=== PATIENT | female | born 1945 | race Caucasian/White ===

== ENCOUNTER → 2018-04-19 08:31 | Outpatient (CLI) | payer MEDICARE, SELFPAY ==
--- NOTE | 2018-04-19 08:35 | MM_ITS ---
MM Dig screening mamm BI w/CAD CAD Screening ORDERING PHYSICIAN : Tima Duong MD PATIENT AGE: 72 years GENDER: Female HISTORY of lumpectomy and radiation for left breast malignancy. Family history sister with breast cancer age 70 COMPARISON: Bilateral mammograms: April 20172015February 2015 right mammogram October 2016.: TECHNIQUE: Standard CC and MLO images were obtained. R2 CAD reviewed. FINDINGS: . Minimal residual fibroglandular elements Lower density breast.. Small left breast lumpectomy due to the RIGHT BREAST:Small density at the deep axillary right breast on MLO is again noted. It it is more evident than 2017, last years exam. On Today's images is similar but very slight slightly more pronounced than 2016. Also note that this density was not evident on 2012, 2011 up to the level of the right mammogram.. This low-density nodular area nearly 10 mm x 5.5 mm with Question slight irregular, possibly slight subtle stellate margins... It may be merely a intramammary lymph node but seems to be very from study to study but in view of the patient's history of contralateral breast cancer, with suggest follow-up spot views and ultrasound to further evaluate this minimal density.. . LEFT BREAST: Smaller left breast due to lumpectomy with no new findings on left. IMPRESSION: 1. Right Breast. Recommend spot views and ultrasound to evaluate subtle density deep axillary right breast particularly in view of patient's higher risk history of contralateral breast cancer We again see a small nearly 1 cm low-density nodule deep x-ray quadrant right breast similar but slightly more evident in 2016.. Relatively low-density but Question subtle stellate irregular margins..... 2. Left Breast unchanged. Follow-up one year on left stable BI-RADS Category: 0 Need Additional Imaging Evaluaiton RECOMMENDED FOLLOW-UP: IMM - IMMEDIATE FOLLOW-UP RECOMMENDED Spot views right breast and right breast ultrasound when convenient for patient (A letter has been sent to the patient regarding results of the study.) In
== END ==
PROVIDERS: Family Provider Family Medicine; PCP Family Medicine; Visit Provider Surgery
DX: Z12.31 Encounter for screening mammogram for malignant neoplasm of breast (principal)
CPT/HCPCS: 77067

== ENCOUNTER → 2018-05-13 13:33 | Outpatient (CLI) | payer MEDICARE, SELFPAY ==
--- NOTE | 2018-05-13 13:35 | US_ITS ---
MM Dig mamm DX unilat RT CAD, US breast RT complete INDICATION: Follow-up abnormal mammogram ORDERING PHYSICIAN: Tima Duong MD PATIENT AGE: 72 years COMPARISON: 04/19/2018, 04/17/2017 TECHNIQUE: Problem-solving views performed of the right breast FINDINGS: The asymmetric density in the deep upper aspect of the right breast does appear to compress out as fibroglandular tissue. No discrete mass evident. Right breast ultrasound: No solid or cystic abnormalities apparent. IMPRESSION: Negative, no evidence of malignancy BI-RADS Category: 2 Benign Finding(s) RECOMMENDED FOLLOW-UP: 1YR - 1 YEAR FOLLOW-UP (A letter has been sent to the patient regarding results of the study.)
== END ==
PROVIDERS: Family Provider Family Medicine; PCP Family Medicine; Visit Provider Surgery
DX: Z85.3 Personal history of malignant neoplasm of breast (principal); R92.8 Other abnormal and inconclusive findings on diagnostic imaging of breast
CPT/HCPCS: 76641; 77065

== ENCOUNTER → 2019-05-16 08:11 | Outpatient (CLI) | payer MEDICARE, SELFPAY ==
--- NOTE | 2019-05-16 08:12 | MM_ITS ---
MM Dig screening mamm BI w/CAD ORDERING PHYSICIAN : Tima Duong MD PATIENT AGE: 73 years GENDER: Female COMPARISON: Bilateral mammogram studies 04/19/2018, April 2017. Right mammogram October 2016 comparison bilateral mammograms also from to February 2013, 2013, 2014, March 2015 &. April 2016. INDICATION: Screenin yr fu / history of breast cancer Left lumpectomy and radiation--left breast breast malignancy Family history. Sister with breast cancer age 70 TECHNIQUE: Standard CC and MLO images were obtained. R2 CAD reviewed. Additional Left Breast images:: MLO nipple profile; & axillary cc view FINDINGS: Moderate breast density bilaterally. Overall stable appearance with no significant new findings. RIGHT BREAST:No new areas significant concern. Minor nodularity deep right breast unchanged since studies dating back to October 2016. Most likely intramammary lymph node. LEFT BREAST: Left breast is smaller from the previous left mastectomy and radiation changes. There is some minimal residual scarring towards upper-outer quadrant but no new areas concern after reviewing all images Area of minimal focal density at the margin image, lateral left breast on breast the cc view observed, but dissipates on other views-most compatible with fibroglandular elements.It is not seen on MLO nor on the axillary cc view thus favor favor is merely overlapping breast tissue. Also note. Similar area seen in 2018 & 17. . IMPRESSION: ...... Moderate breast density Right breast.: Stable no new areas of concern Follow-up in one year. Left breast. Colon No new areas of significant concern Small asymmetric area of density at the deep lateral left breast on one view dissipates on the other views, & seen previous studies. Follow-up in not over one year recommended,. Annual follow-up should be emphasized/encouraged in this higher risk patient. BI-RADS Category: 2 Benign Finding(s) RECOMMENDED FOLLOW-UP: 1YR 1 YEAR FOLLOW-UP (A letter has been sent to the patient regarding results of the study.)
== END ==
PROVIDERS: PCP Family Medicine; Visit Provider Surgery
DX: Z12.31 Encounter for screening mammogram for malignant neoplasm of breast (principal)
CPT/HCPCS: 77067

== ENCOUNTER → 2020-05-18 08:17 | Outpatient (CLI) | payer MEDICARE, SELFPAY ==
--- NOTE | 2020-05-18 08:34 | MM_ITS ---
PROCEDURE: MM DIG SCREENING MAMM BI W/CAD DIGITAL BREAST TOMOSYNTHESIS INCLUDED Patient Age:74Y CLINICAL INDICATION: Routine screening mammogram. 74-year-old. No female hormones; no new complaints. Previous left lumpectomy prior left breast malignancy. Family history: Sister with breast cancer COMPARISON: [facility] DIGITAL MAMM-SCREEN BILATERAL from 11/14/2010 [facility]MDB DIGITAL MAMM-DX BILATERAL from 02/13/2012 [facility] DIGITAL MAMM-SCREEN BILATERAL from 02/14/2013 DMSB DIG MAMM-SCREEN [facility] from 03/01/2014 DMSB DIG MAMM-SCREEN [facility] from 03/05/2015 [facility]MD[facility] DIG MAMM-DX [facility] from 03/14/2015 DMSB DIG MAMM-SCREEN [facility] from 04/15/2016 [id number] DIG MAMM-DX UNI ADD VIEWS-RT from 11/06/2016 [facility] DIG MAMM-SCREEN [place] W/CAD from 04/17/2017 [facility] MM Dig screening mamm BI w/CAD from 04/19/2018 DXRT MM Dig mamm DX unilat RT CAD from 05/13/2018 DIG MAMM-SCREEN MARILYN from 05/16/2019 TECHNIQUE: Standard CC and MLO images were obtained. R2 CAD reviewed. Bilateral digital breast tomosynthesis included. FINDINGS: . [id number] residual fibroglandular elements No new dominant or suspicious mass either breast. No new areas of architectural change. The no suspicious calcifications Right breast: No new areas of significant concern Small stable asymmetric area of density at the medial deep right breast CC view has been present since with no appreciable progression nor change Left breast: Stable Left breast is smaller due to previous lumpectomy. However we see no significant new findings. Slight than optimal imaging towards deep axillary quadrant due to the smaller breast size but overall similar appearance to multiple previous studies IMPRESSION: Stable bilateral mammogram. No new areas of significant concern Previous left lumpectomy again noted Bilateral follow-up 1 year recommended; and should be be emphasized/encouraged in this higher risk patient BI-RAD Category: 2 Benign Finding(s) FOLLOW-UP: 1YR 1 Year Follow-up the the (A letter has been sent to the patient regarding results of the study.) Dictated by: Salas Rose MD 05/21/2020 11:58 Electronically signed by Salas Rose MD in [place] 05/21/2020 11:58
== END ==
PROVIDERS: PCP Family Medicine; Visit Provider Surgery
DX: Z12.31 Encounter for screening mammogram for malignant neoplasm of breast (principal); Z85.3 Personal history of malignant neoplasm of breast
CPT/HCPCS: 77063; 77067

== ENCOUNTER → 2020-08-06 12:13 | Outpatient (CLI) | payer MEDICARE, SELFPAY ==
--- NOTE | 2020-08-06 12:19 | XR_ITS ---
PROCEDURE: XR SHOULDER RT MIN 2V CLINICAL INDICATION: RT SHOULDER ROTATOR CUFF SYNDROME COMPARISON: No exams were available for comparison FINDINGS: There are moderate osteoarthritic changes of the glenohumeral joint with prominent osteophyte along the inferior aspect of the humeral head/neck junction. Osteoarthritis also noted at the AC joint. No fracture or dislocation. No lytic or blastic change. There is mild subacromial stenosis. Other findings:None. 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
== END ==
PROVIDERS: PCP Family Medicine; Visit Provider Family Medicine
DX: M75.101 Unspecified rotator cuff tear or rupture of right shoulder, not specified as traumatic (principal)
CPT/HCPCS: 73030

== ENCOUNTER → 2021-05-20 07:46 | Outpatient (CLI) | payer MEDICARE, SELFPAY ==
--- NOTE | 2021-05-20 07:47 | MM_ITS ---
PROCEDURE: MM DIG SCREENING MAMM BI W/CAD Digital Breast Tomosynthesis Included CLINICAL INDICATION: Screening Screening for breast cancer COMPARISON: MG DXRT MM Dig mamm DX unilat RT CAD from 05/13/2018 MG DIG MAMM-SCREEN MARILYN from 05/16/2019 MG MM DIG SCREENING MAMM BI W/CAD from 05/18/2020 TECHNIQUE: Standard CC and MLO images and 3D Tomosynthesis was obtained. R2 CAD reviewed. FINDINGS: There is average fibroglandular tissue. 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 The this area cannot be imaged then ultrasound may provide further evaluation. An enlarging 4 mm nodules present in the upper outer right breast Left breast shows no obvious mass or suspicious microcalcification. There is slight increased density of the left breast with a left breast being smaller than the right which is been a constant feature dating back to 05/16/2019. IMPRESSION: Enlarging small right breast nodule. Suggest spot compression views and right breast ultrasound for further evaluation. Also suggest right axillary tail and Ryanne views if possible to exam in the right axilla. Otherwise unremarkable screening mammogram BI-RAD Category: 0 Need Additional Imaging Evaluation FOLLOW-UP: IMM Immediate Follow-up Recommended (A letter has been sent to the patient regarding results of the study.) Dictated by: Alfonso Ogden MD 05/21/2021 08:22 Alfonso Ogden MD in [place] 05/21/2021 08:22
== END ==
PROVIDERS: PCP Family Medicine; Visit Provider Surgery
DX: Z12.31 Encounter for screening mammogram for malignant neoplasm of breast (principal)
CPT/HCPCS: 77063; 77067

== ENCOUNTER → 2021-05-22 08:49 | Outpatient (CLI) | payer MEDICARE, SELFPAY ==
--- NOTE | 2021-05-22 08:53 | XR_ITS ---
PROCEDURE: XR SHOULDER RT MIN 2V CLINICAL INDICATION: right shoulder pain COMPARISON: DX XR SHOULDER RT MIN 2V from 08/06/2020 FINDINGS: No fracture or dislocation. No lytic or blastic change. There is normal mineralization. Are severe osteoarthritic changes of the right shoulder with slightly high-riding humeral head and subacromial stenosis similar to the previous exam. IMPRESSION: Severe osteoarthritic changes with subacromial stenosis and slightly high-riding humeral unchanged Dictated by: Alfonso Ogden MD 05/22/2021 09:52 Alfonso Ogden MD in [place] 05/22/2021 09:52
== END ==
PROVIDERS: PCP Family Medicine; Visit Provider Orthopaedic Surgery
DX: G89.29 Other chronic pain (principal); M25.511 Pain in right shoulder
CPT/HCPCS: 73030

== ENCOUNTER → 2021-06-06 13:50 | Outpatient (CLI) | payer MEDICARE, SELFPAY ==
--- NOTE | 2021-06-06 13:50 | US_ITS ---
PROCEDURE: MM DIG MAMM DX UNILAT RT CAD Digital Breast Tomosynthesis Included Right breast ultrasound CLINICAL INDICATION: ABN MAMM Follow-up abnormal mammogram COMPARISON: MG DMSB DIGITAL MAMM-SCREEN BILATERAL from 02/14/2013 MG DIG MAMM-SCREEN MARILYN from 05/16/2019 MG MM DIG SCREENING MAMM BI W/CAD from 05/18/2020 MG MM DIG SCREENING MAMM BI W/CAD from 05/20/2021 US US BREAST RT COMPLETE from 06/06/2021 TECHNIQUE: Problem solving views performed of the right breast along with right breast ultrasound FINDINGS: Spot compression view and rolled CC views as well as a straight mL view confirms the presence of a benign-appearing nodule in the outer aspect of the right breast measuring 3 mm. Today's study shows the nodule similar in size compared to previous studies. The nodule did appears slightly larger on the previous mammogram. The margins were also obscured overlying vessels Right breast ultrasound: 3 mm cyst is present at the 10 o'clock region corresponding to the mammographic abnormality. No suspicious nodules are evident. IMPRESSION: Benign findings. 3 mm benign-appearing cyst in the 10 o'clock region of the right breast corresponds to the mammographic abnormality BI-RAD Category: 2 Benign Finding FOLLOW-UP: 1 YR 1 Year Follow-up (A letter has been sent to the patient regarding results of the study.) Dictated by: Alfonso Ogden MD 06/12/2021 09:44 Alfonso Ogden MD in [place] 06/12/2021 09:44
== END ==
PROVIDERS: PCP Family Medicine; Visit Provider Surgery
DX: Z85.3 Personal history of malignant neoplasm of breast (principal)
CPT/HCPCS: 76641; 77061; 77065; G0279

== ENCOUNTER → 2022-06-09 07:51 | Outpatient (CLI) | payer MEDICARE, SELFPAY ==
--- NOTE | 2022-06-09 07:52 | MM_ITS ---
PROCEDURE INFORMATION: Exam: MG Bilateral Screening 3D Mammography Exam date and time: 06/09/2022 7:58 AM Age: 76 years old Clinical indication: Screening examination; Additional info: Abnormal RT breat. Family history of breast carcinoma. Personal history of left breast carcinoma treated with lumpectomy and radiation. TECHNIQUE: Imaging protocol: Bilateral Screening tomosynthesis and 2D mammography including computer-aided detection (CAD) when performed. COMPARISON: 1. MG MM DIG MAMM DX UNILAT RT CAD 06/06/2021 2:06 PM 2. MG MM DIG SCREENING MAMM BI W/CAD 05/20/2021 8:09 AM 3. MG MM DIG SCREENING MAMM BI W/CAD 05/18/2020 8:39 AM FINDINGS: Limitations: Technically difficult exam secondary to difficulty positioning and limited range of motion. Images are best obtainable. MAMMOGRAPHY: Breast composition: There are scattered areas of fibroglandular density. Mass: No suspicious masses. Architectural distortion: Questionable subtle area of architectural distortion and asymmetry in the right upper inner quadrant, middle depth, best seen on CC frame 36, MLO frame 40. Relatively stable post lumpectomy scarring in the left breast. Calcifications: No suspicious calcifications. Asymmetric density: See above Skin thickening: Diffuse post radiation skin thickening in the left breast. Axillary adenopathy: None. The axillae and posterior breast tissue bilaterally are partially excluded from view. IMPRESSION: 1. Recommend right breast spot compression CC/MLO view , full field true lateral view and ultrasound for further evaluation of a questionable subtle area of architectural distortion and asymmetry in the right upper inner quadrant. 2. No definite mammographic evidence of malignancy in the left breast. ASSESSMENT: BI-RADS Category 0: Incomplete- Need Additional Imaging Evaluation and/or Prior Mammograms for Comparison
== END ==
PROVIDERS: PCP Nurse Practitioner Family; Visit Provider Surgery
DX: Z12.31 Encounter for screening mammogram for malignant neoplasm of breast (principal)
CPT/HCPCS: 77063; 77067

== ENCOUNTER → 2022-07-01 12:55 | Outpatient (CLI) | payer MEDICARE, SELFPAY ==
--- NOTE | 2022-07-01 12:55 | US_ITS ---
PROCEDURE INFORMATION: Exam: US Right Breast, Complete MG Right Diagnostic Breast Tomosynthesis Exam date and time: 07/01/2022 12:52 PM Age: 76 years old Clinical indication: Recall on the basis of screening mammogram 06/09/2022 possible architectural distortion and asymmetry in the right upper inner quadrant. TECHNIQUE: Imaging protocol: Complete ultrasound of all four quadrants of the Right breast and the retroareolar regions, including ultrasound of the axilla when performed. Right Diagnostic tomosynthesis and 2D mammography including computer-aided detection (CAD) when performed. Unilateral or bilateral exam. COMPARISON: 1. MG MM DIG SCREENING MAMM BI W/CAD 06/09/2022 7:58 AM 2. MG MM DIG MAMM DX UNILAT RT CAD 06/06/2021 2:06 PM 3. MG MM DIG SCREENING MAMM BI W/CAD 05/20/2021 8:09 AM 4. MG MM DIG SCREENING MAMM BI W/CAD 05/18/2020 8:39 AM FINDINGS: MAMMOGRAPHY: Diagnostic spot compression in the upper inner quadrant which almost completely effaced asymmetry in the CC projection, similar appearance to 05/20/2021, with no persisting asymmetry or architectural distortion in the MLO and ML projections. No suspicious mass. ULTRASOUND: Right sonography, all 4 quadrants demonstrate at 10 o'clock 7 cm from the nipple, a sonographically unremarkable 0.5 cm intramammary lymph node. No cystic or suspicious solid masses or sonographic non masslike findings are demonstrated, with particular attention to the upper inner quadrant. Sonographically unremarkable right axillary lymph nodes. IMPRESSION: Suggest six-month follow-up right diagnostic mammogram to ensure stability of the almost completely effaced asymmetry, unless otherwise clinically indicated. ASSESSMENT: BI-RADS Category 3: Probably benign
== END ==
PROVIDERS: PCP Nurse Practitioner Family; Visit Provider Surgery
DX: R92.8 Other abnormal and inconclusive findings on diagnostic imaging of breast (principal)
CPT/HCPCS: 76641; 77061; 77065; G0279

== ENCOUNTER → 2023-01-02 12:50 | Outpatient (CLI) | payer MEDICARE, SELFPAY ==
--- NOTE | 2023-01-02 12:51 | MM_ITS ---
PROCEDURE INFORMATION: Exam: US Right Breast, Complete MG Right Diagnostic Breast Tomosynthesis Exam date and time: 01/02/2023 1:41 PM Age: 77 years old Clinical indication: Short-term radiographic followup; Right breast; asymmetry TECHNIQUE: Imaging protocol: Complete ultrasound of all four quadrants of the right breast and the retroareolar regions, including ultrasound of the axilla when performed. Right Diagnostic tomosynthesis and 2D mammography including computer-aided detection (CAD) when performed. Unilateral or bilateral exam. COMPARISON: 1. US BREAST RT COMPLETE 07/01/2022 1:57 PM 2. Mammogram dated 07/01/2022 FINDINGS: MAMMOGRAPHY: The breast tissue is composed of scattered areas of fibroglandular density. There is no stellate mass, architectural distortion or suspicious microcalcifications to suggest malignancy. No suspicious asymmetry is identified. No skin thickening or axillary adenopathy. ULTRASOUND: Sonographic images of the right breast including the retroareolar region, all 4 quadrants and the axilla do not demonstrate any suspicious solid or cystic masses. No architectural distortion or acoustical shadowing. No skin thickening or axillary adenopathy. IMPRESSION: No mammographic or sonographic evidence of malignancy. Annual bilateral mammographic screening is recommended in June 2023 unless otherwise clinically indicated. ASSESSMENT: BI-RADS Category 1: Negative
== END ==
PROVIDERS: PCP Nurse Practitioner Family; Visit Provider Surgery
DX: R92.8 Other abnormal and inconclusive findings on diagnostic imaging of breast (principal)
CPT/HCPCS: 76641; 77061; 77065; G0279

== ENCOUNTER → 2023-07-20 13:48 | Outpatient (CLI) | payer MEDICARE, SELFPAY ==
--- NOTE | 2023-07-20 13:49 | MM_ITS ---
PROCEDURE INFORMATION: Exam: MG Bilateral Screening 3D Mammography Exam date and time: 07/20/2023 1:44 PM Age: 77 years old Clinical indication: Screening mammogram TECHNIQUE: Imaging protocol: Bilateral Screening tomosynthesis and 2D mammography including computer-aided detection (CAD) when performed.Limited assessment due to difficulty positioning the patient, frozen right shoulder. COMPARISON: 1. MG MM DIG MAMM DX UNILAT RT CAD 01/02/2023 12:49 PM 2. MG MM DIG MAMM DX UNILAT RT CAD 07/01/2022 12:52 PM 3. MG MM DIG SCREENING MAMM BI W/CAD 06/09/2022 7:58 AM 4. MG MM DIG MAMM DX UNILAT RT CAD 06/06/2021 2:06 PM FINDINGS: MAMMOGRAPHY: Breast composition: There are scattered areas of fibroglandular density. Mass: None. Architectural distortion: No new or suspicious architectural distortion. Calcifications: No new or suspicious calcifications are present Asymmetric density: No new or suspicious asymmetric density is present Skin thickening: None. Axillary adenopathy: None. Other findings: Stable postoperative findings are present within the left breast. IMPRESSION: No mammographic evidence of malignancy. Recommend annual screening mammography unless otherwise clinically indicated. ASSESSMENT: BI-RADS category 2: Benign
== END ==
PROVIDERS: PCP Nurse Practitioner Family; Visit Provider Surgery
DX: R92.8 Other abnormal and inconclusive findings on diagnostic imaging of breast (principal)
CPT/HCPCS: 77062; 77066; G0279

== ENCOUNTER → 2023-08-04 15:25 | Outpatient (CLI) | payer MEDICARE, SELFPAY ==
--- NOTE | 2023-08-04 15:25 | US_ITS ---
PROCEDURE INFORMATION: Exam: US Right Breast, Complete Exam date and time: 08/04/2023 3:29 PM Age: 77 years old Clinical indication: Right breast palpable lump. TECHNIQUE: Imaging protocol: Complete ultrasound of all four quadrants of the right breast and the retroareolar regions, including ultrasound of the axilla when performed. COMPARISON: 07/20/2023, 01/02/2023, 07/01/2024 FINDINGS: Breast: Ultrasound assessment of all 4 quadrants and retroareolar right breast as well as right axilla was performed Irregular hypoechoic shadowing vascular mass along the 1 o'clock right breast 4 cm from the nipple measures 0.5 x 0.3 x 0.3 cm. This has sonographically suspicious features. 0.2 x 0.2 x 0.2 cm hypoechoic mass along the 10 o'clock axis 6 cm from the nipple is slightly smaller when compared with 01/02/2023 IMPRESSION: Ultrasound-guided biopsy is recommended to definitively characterize a right 1 o'clock morphologically suspicious shadowing 0.5 cm vascular mass ASSESSMENT: BI-RADS category 4: Suspicious
== END ==
PROVIDERS: PCP Nurse Practitioner Family; Visit Provider Surgery
DX: R92.8 Other abnormal and inconclusive findings on diagnostic imaging of breast (principal)
CPT/HCPCS: 76641

== ENCOUNTER → 2023-08-07 13:48 | Outpatient (CLI) | payer MEDICARE, SELFPAY ==
[2023-08-07 12:53] LABS: Alanine Aminotransferase 32 U/L (12-78); Albumin Level 4.7 g/dl (3.5-5.0); Albumin/Globulin Ratio 1.3 (1.1-1.8); Alkaline Phosphatase 86 U/L (38-126); Anion Gap 15.3 mEq/L (5-15); Aspartate Amino Transferase 41 U/L (14-36); Bilirubin,Total 0.5 mg/dl (0.2-1.3); Blood Urea Nitrogen 21 mg/dl (7-17); Calcium 9.8 mg/dl (8.4-10.2); Carbon Dioxide 26 mmol/L (22.0-30.0); Chloride 102 mmol/L (98-107); Chol/HDL Ratio 3.3 (1-3.5); Cholesterol 174 mg/dl (140-200); Estimated Glomerular Filt Rate 60 ml/min (>60); GFR (African American) 73 ML/MIN (>60); Globulin 3.5 g/dL (1.3-3.2); Glucose 98 mg/dl (74-100); HDL Cholesterol 52 mg/dl (40-60); Potassium 4.3 mmoL/L (3.5-5.1); Sodium 139 mmol/L (136-145); Total Protein,Serum 8.2 g/dl (6.3-8.2); Triglycerides 102 mg/dl (30-150); VLDL Cholesterol 20 mg/dL (0-40)
[2023-08-07 13:04] LABS: Direct LDL Cholesterol 91.86 mg/dL (100-129)
[2023-08-07 13:23] LABS: Thyroid Stimulating Hormone 5.58 uIU/mL (0.465-4.68)
== END ==
PROVIDERS: PCP Nurse Practitioner Family; Visit Provider Nurse Practitioner Family
DX: E03.9 Hypothyroidism, unspecified (principal); E78.5 Hyperlipidemia, unspecified; I10 Essential (primary) hypertension
CPT/HCPCS: 80053; 80061; 84443

== ENCOUNTER → 2023-08-24 07:17 | Outpatient (CLI) | payer MEDICARE, SELFPAY ==
--- NOTE | 2023-08-24 07:17 | US_ITS ---
FINAL REPORT CLINICAL HISTORY: CORE 100 RT BREAST -- DR. CYNTHIA SHAH-- FINDINGS: ULTRASOUND-GUIDED RIGHT BREAST CORE BIOPSY TECHNIQUE: Limited images were obtained to localize region of interest. The abnormality was a 5 mm lesion at 1:00 associated with shadowing. The right breast was prepped in a routine sterile fashion and locally anesthetized with 1% lidocaine. Standard written informed consent was obtained. An 11-gauge vacuum assisted hand-held device was utilized. The needle was positioned posterior to the lesion. Multiple vacuum assisted core samples were obtained. The lesion was noted to be significantly smaller following biopsy. A biopsy marker clip was deployed in satisfactory position. Postbiopsy mammogram showed postbiopsy changes with clip in satisfactory position. Procedure was well tolerated . CONCLUSION: 1. Technically successful ultrasound guided vacuum assisted core biopsy of right breast lesion as above. 2. Biopsy marker clip deployed Histopathology results reveal invasive ductal carcinoma.. Pathology is concordant with imaging findings. Medical and surgical oncological follow-up recommended Authenticated and ERN
--- NOTE | 2023-08-24 07:35 | MM_ITS ---
FINAL REPORT CLINICAL HISTORY: . CLIP PLACEMENT, breast biopsy FINDINGS: MAMMOGRAM RIGHT TECHNIQUE: Standard digital 2-D views COMPARISON: 07-20-23 DENSITY: There are scattered areas of fibroglandular density FINDINGS: Post biopsy marker clip is noted to be in satisfactory position. Postbiopsy changes are noted. No mass was evident mammographically on pre-biopsy. IMPRESSION: Biopsy marker clip in good position RECOMMENDATION: Given findings of invasive ductal carcinoma, oncologic follow-up recommended. Authenticated and ERN
== END ==
PROVIDERS: PCP Nurse Practitioner Family; Visit Provider Surgery
DX: R92.8 Other abnormal and inconclusive findings on diagnostic imaging of breast (principal)
CPT/HCPCS: 19083; 77065; 88305; 88341; 88342; 88360; C2618

== ENCOUNTER → 2023-09-11 14:48 | Outpatient (CLI) | payer MEDICARE, SELFPAY ==
[2023-09-11 15:09] LABS: Basophils # 0.1 K/mm3 (0-0.2); Basophils % 1.1 % (0.1-2.0); Eosinophils # 0.1 K/mm3 (0.0-0.4); Eosinophils % 2.3 % (0.1-12.0); Hematocrit 38.4 % (37.0-47.0); Hemoglobin 12.9 g/dL (12.2-16.2); Lymphocytes # 2.4 K/mm3 (0.7-4.5); Lymphocytes % 38.1 % (10-50); Mean Corpuscular HGB Conc 33.7 g/dL (31.8-35.4); Mean Corpuscular Hemoglobin 30.8 pg (27.0-31.2); Mean Corpuscular Volume 91.3 fl (81-99); Mean Platelet Volume 7.3 fl (7.4-10.4); Monocytes # 0.4 K/mm3 (0.1-1.0); Monocytes % 5.7 % (1.7-9.3); Neutrophils # 3.3 K/mm3 (1.8-7.8); Neutrophils % 52.8 % (37.0-80.0); Platelet Count 241 K/mm3 (142-424); Red Cell Distribution Width 14.2 % (11.5-17.5); White Blood Count 6.2 K/mm3 (4.8-10.8)
[2023-09-11 16:29] LABS: Anion Gap 15.9 mEq/L (5-15); Blood Urea Nitrogen 16 mg/dl (7-17); Calcium 9.6 mg/dl (8.4-10.2); Carbon Dioxide 22 mmol/L (22.0-30.0); Chloride 104 mmol/L (98-107); Estimated Glomerular Filt Rate 69 ml/min (>60); GFR (African American) 84 ML/MIN (>60); Glucose 112 mg/dl (74-100); Potassium 3.9 mmoL/L (3.5-5.1); Sodium 138 mmol/L (136-145)
== END ==
PROVIDERS: PCP Nurse Practitioner Family; Visit Provider Surgery
DX: C50.911 Malignant neoplasm of unspecified site of right female breast (principal); R92.8 Other abnormal and inconclusive findings on diagnostic imaging of breast; Z17.0 Estrogen receptor positive status [ER+]
CPT/HCPCS: 36415; 80048; 85025

== ENCOUNTER → 2023-09-15 14:09 | Outpatient (CLI) | payer MEDICARE, SELFPAY ==
--- NOTE | 2023-09-15 14:17 | ECG_ITS ---
APPROVED REPORT Exam: Resting ECG HR:67 bpm ECG Measurements Heart Rate 67 AXES KS 158 P 63 QRSd 78 QRS -33 QT 378 T 24 QTc 393 Conclusion SINUS RHYTHM LEFT AXIS DEVIATION [QRS AXIS < -30] ABNORMAL ECG UNCONFIRMED REPORT Electronically signed by : Hong Lambert MD 09/16/2023 21:13:38
== END ==
PROVIDERS: PCP Nurse Practitioner Family; Visit Provider Surgery
DX: Z01.818 Encounter for other preprocedural examination (principal); C50.411 Malignant neoplasm of upper-outer quadrant of right female breast; Z17.0 Estrogen receptor positive status [ER+]
CPT/HCPCS: 93005

== ENCOUNTER 2023-09-23 09:24 | Day surgery (SDC) | payer MEDICARE, SELFPAY ==
[2023-09-23] VITALS (10 sets, daily range): BP systolic 148–197; BP diastolic 76–117; PULSE 53–72; RESP 14–18; TEMP 36.6–36.8; O2SAT 93–99; BMI 29.1
--- NOTE | 2023-09-23 | MM_ITS ---
FINAL REPORT CLINICAL HISTORY: . FINDINGS: MAMMOGRAM RIGHT AND SPECIMEN RADIOGRAPH TECHNIQUE: Standard digital 2-D views COMPARISON: None DENSITY: There are scattered areas of fibroglandular density FINDINGS: Breast hookwire localization procedure History: Localization needed for right breast surgery Findings:Post hookwire deployment mammogram shows adequate positioning of the localization wire. The hook is seen position adjacent to the biopsy marker clip located within the right upper inner quadrant. A postsurgical specimen radiograph shows the hookwire to be contained within the central specimen along with the localization wire. IMPRESSION: 1. Mammogram shows satisfactory positioning of localization wire adjacent the biopsy marker clip 2. Specimen radiograph confirms removal of the biopsy marker clip within the specimen adjacent to the localization wire History: Localization needed for right breast surgery Technique: Right breast was prepped in a routine sterile fashion and locally anesthetized with 1% lidocaine. Using mammographic grid localization a superior to inferior approach was utilized. The localization needle was directed toward the biopsy marker clip within the right upper inner quadrant. Upon confirmation of adequate needle positioning based on orthogonal imaging, hookwire was deployed. Post hookwire mammogram shows adequate positioning of the localization wire. A postsurgical specimen radiograph shows the hookwire to be contained within the central specimen along with the localization wire. Impression: Technique please successful hookwire localization of biopsy marker clip of the right breast confirmed on specimen radiograph Authenticated and ERN
--- NOTE | 2023-09-23 10:01 | MM_ITS ---
FINAL REPORT CLINICAL HISTORY: needle loc FINDINGS: Breast hookwire localization procedure History: Localization needed for right breast surgery Technique: Right breast was prepped in a routine sterile fashion and locally anesthetized with 1% lidocaine. Using mammographic grid localization a superior to inferior approach was utilized. The localization needle was directed toward the biopsy marker clip within the right upper inner quadrant. Upon confirmation of adequate needle positioning based on orthogonal imaging, hookwire was deployed. Post hookwire mammogram shows adequate positioning of the localization wire. A postsurgical specimen radiograph shows the hookwire to be contained within the central specimen along with the localization wire. IMPRESSION: Technique please successful hookwire localization of biopsy marker clip of the right breast confirmed on specimen radiograph Authenticated and ERN
--- NOTE | 2023-09-23 11:33 | EXP.ANES.CKL ---
[facility] Disclaimer: The information contained in this section may have been updated after the patient was seen, as this information can be updated by other users. Medical History Abnormal mammogram of right breast History of left breast cancer Surgical History History of colonoscopy History of left breast biopsy Family History Other Family history of cancer Family history of myocardial infarction Social History Smoking Status: Never smoker alcohol intake: never counseling provided: none substance use type: denies use current occupational status: employed Travel in the last 8 weeks: None [facility] Anesthesia Checklist Patient Identification Patient Identification: Arm Band, Family and Verbal (Name & ) Structural Data Admitted From: Home Planned Operative Procedure/s: RT. Axillary S.L.Node Bx after needle localization Consent for Planned Operative Procedure(s) Verified: Yes Verified Documents: Surgical Consent and History and Physical NPO Status Verified Time NPO: 20:30 Chart Verification Results Verified: CBC, BMP and ECG Additional verifications Patient : No Anesthesia Reactions: No Hx Blood Transfusions: No Blood Transfusion Reaction: No Cephalosporin Allergy: No Previous Colonoscopy: No Cardiovascular Assessment Heart Sounds: S1 & S2 Pulse Rhythm: Irregular Peripheral Edema: No Airway Assessment Mallampati Score:: Class II C-Spine Mobility Assessed: Yes TMJ Mobility Assessed: Yes Dentition: Good Dentition (Nothing loose per pt.) Neurological Assessment Level of Consciousness: Awake, Alert, Appropriate and Follows Commands Hx Seizures: No Numbness or tingling in extremities: No Anesthesia Plan Anesthesia Risk discussed: Yes Anesthesia Plan: Verified ASA Class: III Anesthesia Type: General
--- NOTE | 2023-09-23 13:22 | P.OP_ITS ---
Date of procedure: 09/23/23 Pre-op Diagnosis:: Right breast cancer Post-op Diagnosis:: Same Procedure performed:: Needle-localized excisional right breast biopsy Right axillary sentinel lymph node biopsy Surgeon:: Tima Duong MD Anesthesia: local and LMA Estimated blood loss (mL): 15 Operative findings:: Right axillary sentinel lymph node(s) - Gamma count 3422 Radiographic confirmation of clip obtained Operative note:: After informed consent was obtained the patient was taken to the radiology suite where localization needle was placed. Please see separate report for detail. She then reported to the preoperative holding area where right periareolar radioisotope injection was completed. Upon transfer to the operating room she was maintained in the supine position. General anesthesia with laryngeal mask airway was achieved. Her right breast and axilla were prepped and draped in sterile fashion. After infiltration with local anesthetic an incision was made along the right axillary margin at the site of greatest Neoprobe activity. The underlying tissue was carefully elevated as the targeted lymph tissue was resected with electrocautery. Gamma count of the excised tissue was 3422. Reevaluation of the axilla and wound base/margin with the Neoprobe device revealed background uptake only. Electrocautery was utilized to achieve hemostasis. The deep subcutaneous tissue was reapproximated with interrupted Vicryl and skin was closed with 4-0 Monocryl in a running subcuticular fashion. Attention was then turned to the needle-localization site along the superior right breast. After infiltration with local anesthetic a slightly curvilinear incision was made at the guidewire exit site. The underlying tissue was carefully dissected with electrocautery as it was elevated. The localization needle and surrounding tissue were excised in toto and passed off for radiographic confirmation followed by pathologic evaluation. Note that the superior and lateral margins were marked with non-dyed suture (short superior /long lateral) and the deep and superficial margins were marked with dyed suture (short superficial/long deep). Electrocautery was utilized to achieve hemostasis. Metallic clips were placed along the wound base and margin. The deep subcutaneous tissue was reapproximated with interrupted Vicryl and skin was closed with running 4-0 Monocryl. Dressings were applied and the patient was transferred to recovery in stable condition. Condition: stable Disposition: PACU Specimens:: Right axillary sentinel lymph node(s) and surrounding adipose tissue Needle-localized right breast biopsy Complications:: No immediate
--- NOTE | 2023-09-23 13:32 | EXP.ANES.I ---
[facility] Anesthesia Record Part I Anesthesia Record I Intake, IV Amount: 450 Hydration: Adequate Estimated blood loss (mL): 25 Urine output (mL): 0 Blood Products used (#): none Blood Pressure: 183/117 (Pt. Squirming in bed. Difficult to obtain accurate B/P reading.) SaO2: 93 Pulse Rate: 66 Airway Patency: Patent Respiratory Rate: 16 Temperature: 97.8 F Patient is:: Awake and Stable Stable to PACU at:: 13:35
--- NOTE | 2023-09-23 14:00 | SUR.PHASEII ---
spoke with Lashonda in clinic pharmacy regarding pt meds to beds. gave lashonda pt social and let her know pt will be in post op.
--- NOTE | 2023-09-28 07:23 | P.PNANES_ITS ---
[facility] Anesthesia Record Part II Anesthesia Record Part II Discharge Time: 14:00 Destination: Surgical Day Care (OP Surgery) PACU nurse assessment reviewed?: Yes Patient Condition:: Good Anesthesia Complications:: None Swallowing reflex intact?: Yes Airway Patency: Patent Cyanosis?: No Blood Pressure: 187/97 SaO2: 95 Respiratory Rate: 17 Pulse Rate: 65 Temperature: 98 F Mental Status: Alert & Oriented Pain level:: 9 Nausea and/or vomitting:: None Intake, IV Amount: 0 Hydration: Adequate
[2023-09-28 07:24] VITALS: BP 187/97; PULSE 65; RESP 17; TEMP 36.6; O2SAT 95
== END 2023-09-23 14:50 | disposition home or self-care (01) ==
PROVIDERS: PCP Nurse Practitioner Family; Visit Provider Surgery
PROC: (CPT 19101; principal; 2023-09-23 12:00)
DX: C50.411 Malignant neoplasm of upper-outer quadrant of right female breast (principal); Z17.0 Estrogen receptor positive status [ER+]
CPT/HCPCS: 19101; 38525; C1889; 19281; 38792; 76098; 88307; 88341; 88342; 96374; A9541; J2405

== ENCOUNTER → 2023-11-04 09:09 | Outpatient (CLI) | payer MEDICARE, SELFPAY ==
--- NOTE | 2023-11-04 09:14 | XR_ITS ---
FINAL REPORT CLINICAL HISTORY: BREAST CANCER HISTORY osteoporosis screening COMPARISON: none FINDINGS: Using L1-4, the bone mineral density of the spine is 0.909 g/cm2, corresponding to T-score of -1.3, consistent with osteopenia. Using the left hip, the bone mineral density of the femoral neck is 0.789 g/cm2, corresponding to a T-score of -1.3, consistent with osteopenia. Using the right hip, the bone mineral density of the femoral neck is 0.842 g/cm2, corresponding to a T-score of -0.8, at the lower limits of normal. FRAX not reported because patient is being treated for osteoporosis. NOTE: T-score: Standard deviation compared with peak bone mass of young adult mean. *Following the recommendations of the International Society of Bone densitometry, classification of hip BMD is based on the lower of two T-scores; total hip or femoral neck. IMPRESSION: Diminished bone mineral density consistent with osteopenia. Reviewed, Interpreted and Dictated by Kirill Esparza MD Transcribed by Deirdre Munguia Authenticated and [facility]
== END ==
LOC: RAD 09:10
PROVIDERS: PCP Internal Medicine; Visit Provider Internal Medicine Medical Oncology
DX: Z78.0 Asymptomatic menopausal state (principal)
CPT/HCPCS: 77080

== ENCOUNTER 2023-11-19 10:39 | Outpatient (CLI) | payer MEDICARE, SELFPAY ==
--- NOTE | 2023-11-19 10:47 | XR_ITS ---
FINAL REPORT CLINICAL HISTORY: Pain in bottom of left foot/toenail in 2nd digit. Hx of breast cancer Aug 2023. COMPARISON: None FINDINGS: RIGHT FOOT: Three views of the right foot were obtained. There is no acute fracture or dislocation. Pes planus deformity is noted. There is mild degenerative change. There is no soft tissue abnormality. IMPRESSION: No acute bony abnormality. Pes planus deformity. Reviewed, Interpreted and Dictated by Elkin Quiroz III, MD Transcribed by Deirdre Munguia Authenticated and . [facility]
--- NOTE | 2023-11-19 10:47 | XR_ITS ---
FINAL REPORT CLINICAL HISTORY: Pain in bottom of left foot/toenail in 2nd digit. Hx of breast cancer Aug 2023. COMPARISON: None FINDINGS: LEFT FOOT: Three views of the left foot were obtained. There is no acute fracture or dislocation. There is mild degenerative change. Pes planus deformity is noted. There is no soft tissue abnormality. IMPRESSION: No acute bony abnormality. Pes planus deformity. Reviewed, Interpreted and Dictated by Elkin Quiroz III, MD Transcribed by Deirdre Munguia Authenticated and [facility]
== END 2023-11-19 23:59 ==
LOC: RAD 10:41
PROVIDERS: PCP Internal Medicine; Visit Provider Internal Medicine
DX: M79.671 Pain in right foot (principal); M79.672 Pain in left foot
CPT/HCPCS: 73630

== ENCOUNTER 2023-12-22 12:48 | Outpatient (CLI) | payer MEDICARE, SELFPAY ==
[2023-12-22 14:20] LABS: Thyroid Stimulating Hormone 2.36 uIU/mL (0.465-4.68)
== END 2023-12-22 23:59 ==
PROVIDERS: PCP Internal Medicine; Visit Provider Internal Medicine
DX: E03.9 Hypothyroidism, unspecified (principal)
CPT/HCPCS: 84443

== ENCOUNTER 2024-02-16 12:36 | Outpatient (CLI) | payer MEDICARE, SELFPAY ==
[2024-02-16 12:40] LABS: Basophils # 0.1 K/mm3 (0-0.2); Basophils % 1.1 % (0.1-2.0); Eosinophils # 0.1 K/mm3 (0.0-0.4); Eosinophils % 1.5 % (0.1-12.0); Hematocrit 41.2 % (37.0-47.0); Hemoglobin 13.7 g/dL (12.2-16.2); Lymphocytes # 1.2 K/mm3 (0.7-4.5); Lymphocytes % 21.1 % (10-50); Mean Corpuscular HGB Conc 33.2 g/dL (31.8-35.4); Mean Corpuscular Hemoglobin 30.2 pg (27.0-31.2); Mean Corpuscular Volume 91.1 fl (81-99); Mean Platelet Volume 7.7 fl (7.4-10.4); Monocytes # 0.4 K/mm3 (0.1-1.0); Monocytes % 7.5 % (1.7-9.3); Neutrophils # 3.7 K/mm3 (1.8-7.8); Neutrophils % 68.8 % (37.0-80.0); Platelet Count 292 K/mm3 (142-424); Red Blood Count 4.52 M/mm3 (4.20-5.40); Red Cell Distribution Width 14.1 % (11.5-17.5); White Blood Count 5.4 K/mm3 (4.8-10.8)
[2024-02-16 12:45] LABS: Alanine Aminotransferase 32 U/L (12-78); Albumin Level 4.3 g/dl (3.5-5.0); Albumin/Globulin Ratio 1.3 (1.1-1.8); Alkaline Phosphatase 77 U/L (38-126); Anion Gap 10.7 mEq/L (5-15); Aspartate Amino Transferase 45 U/L (14-36); Blood Urea Nitrogen 26 mg/dl (7-17); Calcium 10.5 mg/dl (8.4-10.2); Carbon Dioxide 28 mmol/L (22.0-30.0); Chloride 101 mmol/L (98-107); Estimated Glomerular Filt Rate 53 ml/min (>60); GFR (African American) 65 ML/MIN (>60); Globulin 3.2 g/dL (1.3-3.2); Glucose 105 mg/dl (74-100); Potassium 3.7 mmoL/L (3.5-5.1); Sodium 136 mmol/L (136-145); Total Protein,Serum 7.5 g/dl (6.3-8.2)
[2024-02-16 12:50] LABS: C-Reactive Protein 0.5 mg/L (0-4)
[2024-02-16 13:23] LABS: Erythrocyte Sedimentation Rate 63 mm/hr (0-30)
== END 2024-02-16 23:59 ==
LOC: LAB.DROPOF 12:36
PROVIDERS: PCP Internal Medicine; Visit Provider Internal Medicine
DX: R19.7 Diarrhea, unspecified (principal); D84.9 Immunodeficiency, unspecified
CPT/HCPCS: 80053; 85025; 85651; 86140

== ENCOUNTER 2024-02-18 08:29 | Outpatient (CLI) | payer MEDICARE, SELFPAY ==
[2024-02-18 08:34] LABS: Adenovirus F 40/41, stool Not Detected (NotDetected); Astrovirus Not Detected (NotDetected); Campylobacter Not Detected (NotDetected); Cryptosporidium Not Detected (NotDetected); Cyclospora Cayetanesis Not Detected (NotDetected); Entamoeba histolytica Not Detected (NotDetected); Enteroaggregative E coli Not Detected (NotDetected); Enteropathogenic E coli Not Detected (NotDetected); Enterotoxigenic E coli Not Detected (NotDetected); Giardia lamblia Not Detected (NotDetected); Plesimonas Shigalloides, PCR Not Detected (NotDetected); Rotavirus A Not Detected (NotDetected); Salmonella, PCR Not Detected (NotDetected); Sapovirus Not Detected (NotDetected); Shiga-like toxin E coli Not Detected (NotDetected); Shigella Enterovasive E coli Not Detected (NotDetected); Vibrio Cholerae Not Detected (NotDetected); Vibrio, PCR Not Detected (NotDetected); Yersinia Entercolitica, PCR Not Detected (NotDetected)
[2024-02-22 10:23] LABS: Clostridium Difficile A/B, PCR Detected (NotDetected)
[2024-02-22 10:24] LABS: Norovirus Detected (NotDetected)
== END 2024-02-18 23:59 | disposition home or self-care (01) ==
LOC: LAB.DROPOF 08:30
PROVIDERS: PCP Internal Medicine; Visit Provider Internal Medicine
DX: R19.7 Diarrhea, unspecified (principal); A04.72 Enterocolitis due to Clostridium difficile, not specified as recurrent; A08.19 Acute gastroenteropathy due to other small round viruses
CPT/HCPCS: 87045; 87506

== ENCOUNTER 2024-05-26 13:36 | Emergency (ER) | payer MEDICARE, SELFPAY ==
--- NOTE | 2024-05-26 13:56 | EXP.UTC ---
Discharge Plan Disposition Patient Disposition: Home, Self-Care Condition: Good Prescriptions Prescriptions: New azithromycin [Zithromax] 250 mg tablet 250 mg PO UD DOSE PK Qty: 6 0RF Rx Instructions: Take two (2) tablets today, then one (1) tablet days #2 thru #5 benzonatate 100 mg capsule 100 mg PO TIDP PRN (Reason: Cough) Qty: 30 0RF No Action losartan 50 mg tablet 50 mg PO DAILY potassium chloride 20 mEq tablet extended release 20 meq PO DAILY PRN (Reason: supplement) Qty: 30 0RF diclofenac sodium 1 % gel 4 g topical QID PRN (Reason: pain) Qty: 100 2RF Rx Instructions: Apply to single knee, ankle, foot; for foot includes sole/toes/top of foot. Use lowest effective dose to relieve pain. anastrozole 1 mg tablet 1 mg PO DAILY Patient Comments: TAKE ONE TABLET BY MOUTH EVERY DAY mometasone 0.1 % cream 1 applic topical DAILY colestipol 1 gram tablet 1 g PO DAILY loperamide 2 mg capsule 2 mg PO Q6H PRN (Reason: loose stool) Qty: 30 2RF Rx Instructions: take two tabs x 1 dose, then 1 tablet for loose bowel movements after pravastatin 10 mg tablet 10 mg PO HS furosemide 40 mg tablet 40 mg PO DAILY PRN (Reason: Fluid) levothyroxine 112 mcg tablet See Rx Instructions .ROUTE .COMPLEX Qty: 90 2RF Dose Instruction: TAKE ONE TABLET BY MOUTH EVERY DAY Rx Instructions: TAKE ONE TABLET BY MOUTH EVERY DAY chlorthalidone 25 mg tablet See Rx Instructions .ROUTE .COMPLEX Qty: 90 1RF Dose Instruction: TAKE ONE TABLET BY MOUTH EVERY DAY Rx Instructions: TAKE ONE TABLET BY MOUTH EVERY DAY calcium carbonate-vitamin D3 600 mg-10 mcg (400 unit) tablet See Rx Instructions .ROUTE .COMPLEX Qty: 60 5RF Dose Instruction: TAKE TWO TABLETS BY MOUTH EVERY DAY Rx Instructions: TAKE TWO TABLETS BY MOUTH EVERY DAY Referrals Follow up/Referrals: Hugo Montez DO [Primary Care Provider] - See instructions Activity Restrictions/Add. Instructions Additional Instructions/Restrictions: Drink plenty of fluids. Take tylenol or ibuprofen for pain or fever. Take the medications as directed. Follow up with your regular doctor. GO TO THE ER FOR ANY WORSENING SYMPTOMS Clinical Impressions Clinical Impression: Acute viral syndrome, Sinusitis Instructions Patient Instructions: DI for Sinusitis, DI for Viral Syndrome Discharge ED Provider: Navin Munoz [facility] HPI General Stated complaint: congestion, chills, fever Time Seen by Provider: 05/26/24 13:56 Related Data Home Medications Medication Instructions Recorded Confirmed losartan 50 mg tablet 50 mg PO DAILY 05/23/20 05/26/24 furosemide 40 mg tablet 40 mg PO DAILY PRN Fluid 08/07/23 05/26/24 pravastatin 10 mg tablet 10 mg PO HS 08/07/23 05/26/24 anastrozole 1 mg tablet 1 mg PO DAILY 12/22/23 05/26/24 mometasone 0.1 % topical cream 1 applic topical DAILY 12/22/23 05/26/24 colestipol 1 gram tablet 1 g PO DAILY 02/16/24 05/26/24 Previous Rx's Medication Instructions Recorded potassium chloride 20 mEq 20 meq PO DAILY PRN supplement #30 10/28/23 tablet,extended release tabs diclofenac sodium 1 % topical gel 4 g topical QID PRN pain #100 grams 11/11/23 levothyroxine 112 mcg tablet See Rx Instructions .Route 01/26/24 .COMPLEX #90 tabs loperamide 2 mg capsule 2 mg PO Q6H PRN loose stool #30 02/16/24 caps chlorthalidone 25 mg tablet See Rx Instructions .Route 04/30/24 .COMPLEX #90 tabs calcium carbonate 600 mg-vitamin See Rx Instructions .Route 05/17/24 D3 10 mcg (400 unit) tablet .COMPLEX #60 tabs azithromycin 250 mg tablet 250 mg PO UD DOSE PK #6 tabs 05/26/24 (Zithromax) benzonatate 100 mg capsule 100 mg PO TIDP PRN Cough #30 caps 05/26/24 Allergies Allergy/AdvReac Type Severity Reaction Status Date / Time Sulfa (Sulfonamide Allergy Rash Verified 05/16/24 11:05 Antibiotics) tetracycline Allergy Rash Verified 05/16/24 11:05 [facility] Disclaimer: The information contained in this section may have been updated after the patient was seen, as this information can be updated by other users. Medical History History of left breast cancer Abnormal mammogram of right breast Surgical History S/P lumpectomy, right breast History of colonoscopy History of left breast biopsy Family History Other Family history of cancer Family history of myocardial infarction Social History Smoking Status: Never smoker alcohol intake: never counseling provided: none substance use type: denies use current occupational status: employed Travel in the last 8 weeks: None ROS Obtained: Yes All systems reviewed & no additional complaints except as documented Constitutional Constitutional: Reports poor appetite Eyes Eyes: Reports system reviewed and no additional complaints, except as documented ENT Ears, Nose, Mouth, and Throat: Reports as per HPI Cardiovascular Cardiovascular: Reports system reviewed and no additional complaints, except as documented and Denies chest pain Respiratory Respiratory: Denies shortness of breath, Denies chest congestion, Reports cough, Denies stridor and Denies wheezing Gastrointestinal Gastrointestingal: Reports system reviewed and no additional complaints, except as documented; Denies abdominal pain, diarrhea or vomiting Musculoskeletal Musculoskeletal: Reports system reviewed and no additional complaints, except as documented and Denies arthralgias Integumentary/Breasts Skin/Breast: Reports system reviewed and no additional complaints, except as documented and Denies rash Neurologic Neurologic: Denies paresthesias Allergic/Immunologic Allergic/Immunologic: Denies wheezing Physical Exam General General appearance: alert and in no apparent distress Eye Eye exam: Present normal appearance, PERRL and EOMI ENT ENT exam: Present mucous membranes moist and normal external ear exam Expanded ENT Exam External ear exam: Present normal external inspection TM/Canal exam: Bilateral TM: erythema and bulging Nose exam: Absent sinus tenderness Nasal speculum exam: Bilateral: normal Mouth exam: Present normal external inspection; Absent drooling Teeth exam: Present normal inspection Throat exam: Present tonsillar erythema and tonsillomegaly Neck Neck exam: Present normal inspection, full ROM and trachea midline; Absent tenderness, lymphadenopathy or thyromegaly Chest Chest inspection: Present normal inspection and symmetric chest wall rise; Absent tenderness or rash Respiratory Respiratory exam: Present normal lung sounds bilaterally; Absent respiratory distress, wheezes, stridor or accessory muscle use Cardiovascular Cardiovascular exam: Present regular rate, normal rhythm and normal heart sounds Abdominal Exam Abdominal exam: Present soft; Absent distention, tenderness, guarding, rebound or rigidity Extremities Exam Extremities exam: Present normal inspection, full ROM and normal capillary refill; Absent tenderness or calf tenderness Back Exam Back exam: Present normal inspection and full ROM; Absent tenderness Neurological Exam Neurological exam: Present alert and oriented X3 Psychiatric Psychiatric exam: Present normal affect and normal mood Skin Skin exam: Present warm, dry, intact and normal color Lymphatic Lymphatic Findings: no adenopathy Medical Decision Making Medical Records Medical records reviewed: No I reviewed the patient's medical records. Saeid Inquiry Pt receiving controlled substance: No
[2024-05-26 14:00] VITALS: BP 128/62; PULSE 80; RESP 20; TEMP 37.4; O2SAT 100; BMI 24.7
[2024-05-26 14:20] VITALS: BP 128/62; PULSE 80; RESP 20; TEMP 37.4; O2SAT 100
== END 2024-05-26 14:27 | disposition home or self-care (01) ==
PROVIDERS: Emergency Provider Nurse Practitioner Family; PCP Internal Medicine
DX: U07.1 COVID-19 (principal); J01.90 Acute sinusitis, unspecified; R50.9 Fever, unspecified; R09.81 Nasal congestion
CPT/HCPCS: 87635; 99204; 99212; G0463

== ENCOUNTER 2024-07-25 09:46 | Outpatient (CLI) | payer MEDICARE, SELFPAY ==
--- NOTE | 2024-07-25 09:46 | MM_ITS ---
PROCEDURE INFORMATION: Exam: MG Bilateral Screening 3D Mammography Exam date and time: 07/25/2024 9:45 AM Age: 78 years old Clinical indication: Screening examination. History of right breast cancer TECHNIQUE: Imaging protocol: Bilateral Screening tomosynthesis and 2D mammography including computer-aided detection (CAD) when performed. Frozen shoulder COMPARISON: 1. MG MM SURGICAL SPECIMEN RT 09/23/2023 12:44 PM 2. MG MM NEEDLE LOC RT 09/23/2023 9:47 AM 3. MG MM DIG SCREENING MAMM BI W/CAD 06/09/2022 7:58 AM 4. MG MM DIG MAMM BI DX W/CAD 07/20/2023 1:44 PM FINDINGS: MAMMOGRAPHY: Breast composition: There are scattered areas of fibroglandular density. Mass: None. Architectural distortion: post operative architectural distortion in the right upper inner quadrant due to interval lumpectomy for carcinoma. No significant postoperative distortion in the right breast. Calcifications: No suspicious calcifications. Asymmetric density: None. Skin thickening: None. Axillary adenopathy: Limited evaluation of posterior tissue and axilla bilaterally due to inability to fully cooperate with the examination IMPRESSION: No mammographic evidence of malignancy. Annual screening is recommended unless otherwise clinically indicated. ASSESSMENT: BI-RADS Category 2: Benign.
== END 2024-07-25 23:59 | disposition home or self-care (01) ==
LOC: RAD 09:46
PROVIDERS: PCP Internal Medicine; Visit Provider Surgery
DX: Z12.31 Encounter for screening mammogram for malignant neoplasm of breast (principal)
CPT/HCPCS: 77063; 77067

== ENCOUNTER 2024-08-02 14:10 | Outpatient (CLI) | payer MEDICARE, SELFPAY ==
[2024-08-02 13:31] LABS: Albumin Level 4.4 g/dl (3.5-5.0); Chloride 105 mmol/L (98-107)
[2024-08-02 13:32] LABS: Potassium 3.6 mmoL/L (3.5-5.1); Sodium 138 mmol/L (136-145)
[2024-08-02 13:34] LABS: Alanine Aminotransferase 44 U/L (12-78); Anion Gap 9.6 mEq/L (5-15); Aspartate Amino Transferase 40 U/L (14-36); Blood Urea Nitrogen 21 mg/dl (7-17); Carbon Dioxide 27 mmol/L (22.0-30.0); Estimated Glomerular Filt Rate 60 ml/min (>60); GFR (African American) 73 ML/MIN (>60)
[2024-08-02 13:35] LABS: Albumin/Globulin Ratio 1.4 (1.1-1.8); Alkaline Phosphatase 78 U/L (38-126); Bilirubin,Total 0.8 mg/dl (0.2-1.3); Calcium 10.1 mg/dl (8.4-10.2); Chol/HDL Ratio 3.3 (1-3.5); Cholesterol 174 mg/dl (140-200); Globulin 3.2 g/dL (1.3-3.2); Glucose 91 mg/dl (74-100); HDL Cholesterol 52 mg/dl (40-60); Total Protein,Serum 7.6 g/dl (6.3-8.2); Triglycerides 96 mg/dl (30-150); VLDL Cholesterol 19 mg/dL (0-40)
[2024-08-02 13:46] LABS: Direct LDL Cholesterol 83.14 mg/dL (100-129)
[2024-08-02 13:51] LABS: Free T4 (Free Thyroxine) 1.97 ng/dl (0.78-2.19)
[2024-08-02 14:05] LABS: Thyroid Stimulating Hormone 0.06 uIU/mL (0.465-4.68)
== END 2024-08-02 23:59 | disposition home or self-care (01) ==
LOC: LAB.DROPOF 14:11
PROVIDERS: PCP Internal Medicine; Visit Provider Internal Medicine
DX: E03.9 Hypothyroidism, unspecified (principal); Z13.29 Encounter for screening for other suspected endocrine disorder; E78.5 Hyperlipidemia, unspecified; Z13.220 Encounter for screening for lipoid disorders; Z00.00 Encounter for general adult medical examination without abnormal findings
CPT/HCPCS: 80053; 80061; 84439; 84443

== ENCOUNTER 2024-08-11 16:18 | Outpatient (CLI) | payer MEDICARE, SELFPAY ==
[2024-08-11 15:13] LABS: Adenovirus F 40/41, stool Not Detected (NotDetected); Astrovirus Not Detected (NotDetected); Campylobacter Not Detected (NotDetected); Clostridium Difficile A/B, PCR Not Detected (NotDetected); Cryptosporidium Not Detected (NotDetected); Cyclospora Cayetanesis Not Detected (NotDetected); Entamoeba histolytica Not Detected (NotDetected); Enteroaggregative E coli Not Detected (NotDetected); Enteropathogenic E coli Not Detected (NotDetected); Enterotoxigenic E coli Not Detected (NotDetected); Giardia lamblia Not Detected (NotDetected); Norovirus Not Detected (NotDetected); Plesimonas Shigalloides, PCR Not Detected (NotDetected); Rotavirus A Not Detected (NotDetected); Salmonella, PCR Not Detected (NotDetected); Sapovirus Not Detected (NotDetected); Shiga-like toxin E coli Not Detected (NotDetected); Shigella Enterovasive E coli Not Detected (NotDetected); Vibrio Cholerae Not Detected (NotDetected); Vibrio, PCR Not Detected (NotDetected); Yersinia Entercolitica, PCR Not Detected (NotDetected)
== END 2024-08-11 23:59 | disposition home or self-care (01) ==
LOC: LAB 16:18 → LAB.DROPOF 16:19
PROVIDERS: PCP Nurse Practitioner Family; Visit Provider Nurse Practitioner Family
DX: R19.7 Diarrhea, unspecified (principal); R15.9 Full incontinence of feces; R15.2 Fecal urgency; R19.4 Change in bowel habit
CPT/HCPCS: 87506

== ENCOUNTER 2024-10-03 07:32 | Day surgery (SDC) | payer MEDICARE, SELFPAY ==
[2024-09-28 14:28] VITALS: BMI 25.0
[2024-10-03 08:07] VITALS: BP 123/76; PULSE 61; RESP 18; O2SAT 97
[2024-10-03] MEDS: LACTATED RINGERS 1000ML 1,000 ML 25 ML IV (08:23)
--- NOTE | 2024-10-03 08:35 | EXP.ANES.CKL ---
[facility] Disclaimer: The information contained in this section may have been updated after the patient was seen, as this information can be updated by other users. Medical History History of left breast cancer Abnormal mammogram of right breast Surgical History S/P lumpectomy, right breast History of colonoscopy History of left breast biopsy Family History Other Family history of cancer Family history of myocardial infarction Social History (Updated 10/03/24 @ 08:11 by Cehtna Gabriel RN) Smoking Status: Never smoker alcohol intake: never counseling provided: none substance use type: denies use current occupational status: employed Travel in the last 8 weeks: None caffeine: No [facility] Anesthesia Checklist Patient Identification Patient Identification: Verbal (Name & ) Structural Data Admitted From: Home Planned Operative Procedure/s: colonoscopy Consent for Planned Operative Procedure(s) Verified: Yes NPO Status Verified Time NPO: 00:00 Additional verifications Anesthesia Reactions: No Hx Blood Transfusions: No Blood Transfusion Reaction: No Airway Assessment Mallampati Score:: Class II C-Spine Mobility Assessed: Yes TMJ Mobility Assessed: Yes Dentition: Good Dentition Neurological Assessment Level of Consciousness: Awake, Alert and Appropriate Anesthesia Plan Anesthesia Risk discussed: Yes Anesthesia Plan: Verified ASA Class: II Anesthesia Type: MAC
--- NOTE | 2024-10-03 08:47 | EXP.HP ---
History of Present Illness *Admission Date: 10/03/24 *Reason for visit:: Diagnostic-change in bowel habits *History of present illness: Mrs. Fabian is an 78-year-old female who is here for diagnostic colonoscopy. She has had diarrhea which began in January 2024. Her last colonoscopy was 10 years ago. She did have a negative Cologuard 5 years ago. The examination is deemed medically necessary for diagnostic colonoscopy. The patient has been seen, interviewed and examined prior to the procedure by both myself and the anesthesia provider. [facility] Disclaimer: The information contained in this section may have been updated after the patient was seen, as this information can be updated by other users. Medical History History of left breast cancer Abnormal mammogram of right breast Surgical History S/P lumpectomy, right breast History of colonoscopy History of left breast biopsy Family History Other Family history of cancer Family history of myocardial infarction Social History (Updated 10/03/24 @ 08:11 by Chetna Gabriel RN) Smoking Status: Never smoker alcohol intake: never counseling provided: none substance use type: denies use current occupational status: employed Travel in the last 8 weeks: None caffeine: No Other Medical History Have you received the Flu Vaccine for this season: No Have you received the Pneumonia Vaccine: Yes Review of Systems Review of Systems Review of systems (narrative): Negative *Cardiovascular Comments: Negative *Gastrointestinal Comments: Negative *Genitourinary Comments: Negative *Musculoskeletal Comments: Negative *Neurologic Comments: Negative Meds Home Medications and Allergies Home Medications ?Medication ?Instructions ?Recorded ?Confirmed ?Type losartan 50 mg tablet 50 mg PO DAILY 05/23/20 10/03/24 History furosemide 40 mg tablet 40 mg PO DAILY PRN Fluid 08/07/23 10/03/24 History pravastatin 10 mg tablet 10 mg PO HS 08/07/23 10/03/24 History potassium chloride 20 mEq 20 meq PO DAILY PRN supplement #30 10/28/23 10/03/24 Rx tablet,extended release tabs diclofenac sodium 1 % topical gel 4 g topical QID PRN pain #100 grams 11/11/23 10/03/24 Rx anastrozole 1 mg tablet 1 mg PO DAILY 12/22/23 10/03/24 History mometasone 0.1 % topical cream 1 applic topical DAILY 12/22/23 10/03/24 History levothyroxine 112 mcg tablet See Rx Instructions .Route 01/26/24 10/03/24 Rx .COMPLEX #90 tabs loperamide 2 mg capsule 2 mg PO Q6H PRN loose stool #30 02/16/24 10/03/24 Rx caps chlorthalidone 25 mg tablet See Rx Instructions .Route 04/30/24 10/03/24 Rx .COMPLEX #90 tabs calcium 600 mg (as See Rx Instructions .Route 05/17/24 10/03/24 Rx carbonate)-vitamin D3 10 mcg (400 .COMPLEX #60 tabs unit) tablet peg 3350-electrolytes 236 240 ml PO Q10M colonscopy #4,000 mL 09/26/24 10/03/24 Rx gram-22.74 gram-6.74 gram-5.86 gram solution (Golytely) New Prescriptions to Start Prescriptions: Allergies Allergy/AdvReac Type Severity Reaction Status Date / Time Sulfa (Sulfonamide Allergy Rash Verified 10/03/24 08:03 Antibiotics) tetracycline Allergy Rash Verified 10/03/24 08:03 Exam Data for Last 24 hours Vital signs and Labs for Last 24 Hours: Pulse Resp BP Pulse Ox O2 Del Method 61 18 123/76 97 Room Air 10/03/24 08:07 10/03/24 08:07 10/03/24 08:07 10/03/24 08:07 10/03/24 08:07 *Routine HEENT Exam Head: Present normocephalic Eye: Present EOMI and PERRL ENT: Present mucous membranes moist *Routine Neck Exam Neck: Present supple *Routine Respiratory Exam Respiratory: Present CTA bilaterally *Routine Cardiovascular Exam Cardiovascular: Present RRR *Routine Abdominal Exam Abdominal: Present soft and normoactive bowel sounds; Absent tenderness *Routine Rectal Exam Rectal:: deferred *Routine Genitalia Exam Genitalia:: deferred *Routine Extremities Exam Extremities: Absent cyanosis, clubbing or edema *Routine Skin Exam Skin: Present warm; Absent rash *Routine Neurological Exam Neurological: Present alert and oriented X3 Assessment and Plan *Assessment and plan (1) Change in bowel habits: Status: Acute Category: Medical Code(s): R19.4 - Change in bowel habit (2) Chronic diarrhea: Status: Acute Category: Medical Code(s): K52.9 - Noninfective gastroenteritis and colitis, unspecified (3) Incontinence of feces: Status: Acute Category: Medical Code(s): R15.9 - Full incontinence of feces Plan A/P: 1. Change in bowel habits with chronic diarrhea and incontinence is the preprocedural diagnosis. The patient will be anesthetized/sedated using MAC sedation. The patient has been seen and examined. Cardiac and lung assessment prior to the examination is stable. Proceed with planned diagnostic colonoscopy
--- NOTE | 2024-10-03 08:49 | P.PCN_ITS ---
[facility] Procedure Note Date: 10/03/24 Time: 09:17 Procedure Note:: Colonoscopy Procedure Report: Colonoscopy with cold biopsies Endoscopist: Marcus Ramos II, MD Referring physician: Hugo Montez DO Date of Procedure: October 03, 2024 Equipment: Olympus 190 variable stiffness pediatric colonoscope Sedation: MAC sedation Indication: Mrs. Fabian is an 78-year-old female who is here for diagnostic colonoscopy. She has had a change in bowel habits that began in January 2024. She does have a history of breast cancer and had started anastrozole in December. In January she developed a diarrhea with urgency and bowel/greenish colored stools with multiple bouts of fecal incontinence. She had taken colestipol a couple of times but did not feel that was working well. She began using bulking Konsyl and has improved some. She reports no rectal bleeding, abdominal pain or family history of colon cancer. Her last colonoscopy was 10 years ago. She did have a negative Cologuard 5 years ago. Her hemoglobin and hematocrit in February 2024 was normal at 13.7 and 41.2. Procedure: Prior to the procedure, a history and physical exam was performed, and patient's medications and allergies were reviewed. The risks, benefits and alternatives of the sedation and procedure were discussed with the patient. All questions were answered and informed consent was obtained. The patient was brought to the procedure room. Patient identification and proposed procedure were verified by the physician and the nurse. The patient was placed in a left lateral decubitus position and the scope was passed under direct vision. Throughout the procedure, the patient's blood pressure, pulse, and oxygen saturations were monitored continuously. The colonoscopy was accomplished without difficulty. The patient tolerated the procedure well. Findings: On digital rectal examination there was normal rectal tone. There were no external hemorrhoids. The colonoscope was introduced through the anal canal to the rectum and advanced to the cecum. The ileocecal valve and appendiceal orifice were identified. The scope was advanced a short distance into the ileum which appeared grossly normal. There was a diverticulum in the distal ileum. The scope was then withdrawn into the colon. There were diverticuli scattered throughout the colon but more extensively in the descending and sigmoid colon. Random biopsies were taken from the right colon to rule out microscopic colitis. The remainder of the cecum, ascending, transverse, descending, sigmoid and rectum were normal. There were no other mucosal abnormalities. Upon retroflexion within the rectum there were grade 2 internal hemorrhoids. The preparation was excellent throughout with [place] Preparation Score of 9. The cecal time was 11 minutes. Impression: 1. Extensive pandiverticulosis 2. Grade 2 internal hemorrhoids Plan: I will follow-up the biopsies to rule out microscopic colitis. The patient has clinically improved with psyllium/Konsyl bulking fiber supplementation. She will not require any further surveillance colonoscopy.
[2024-10-03 08:52] VITALS: O2SAT 100
[2024-10-03 09:20] VITALS: BP 104/52; PULSE 62; RESP 16; TEMP 36.3; O2SAT 96
[2024-10-03 09:30] VITALS: BP 84/51; PULSE 56; RESP 18; O2SAT 98
[2024-10-03 09:40] VITALS: BP 99/58; PULSE 53; RESP 16; O2SAT 98
[2024-10-03 09:50] VITALS: BP 112/45; PULSE 60; RESP 18; O2SAT 98
== END 2024-10-03 10:15 | disposition home or self-care (01) ==
PROVIDERS: PCP Internal Medicine; Visit Provider Internal Medicine Gastroenterology
PROC: (CPT 45380; principal; 2024-10-03 09:00)
DX: R19.4 Change in bowel habit (principal); K52.9 Noninfective gastroenteritis and colitis, unspecified; R15.9 Full incontinence of feces; Z85.3 Personal history of malignant neoplasm of breast; K57.30 Diverticulosis of large intestine without perforation or abscess without bleeding; K64.1 Second degree hemorrhoids
CPT/HCPCS: 45380; 88305; J7120

== ENCOUNTER 2025-06-19 11:55 | Outpatient (CLI) | payer MEDICARE, SELFPAY ==
--- NOTE | 2025-06-19 11:58 | XR_ITS ---
FINAL REPORT CLINICAL HISTORY: left shoulder pain, nki COMPARISON: None FINDINGS: LEFT SHOULDER Two views show no evidence of acute displaced fracture or dislocation of the visualized bony architecture. There are moderate degenerative changes of the glenohumeral joint and mild degenerative changes of the acromioclavicular joint. Osteopenia is noted. IMPRESSION: Degenerative changes without acute abnormality. Reviewed, Interpreted and Dictated by Camilo Jennings MD Transcribed by Marge Tellez Authenticated and [facility]
--- OUTSIDE RECORDS SUMMARY | 2025-06-19 12:09 | XMS_ITS ---
Author Organization Unknown [facility]MENT [facility] Start Date Provider Encounter for Check-up [id number] HAMIDA Neves
== END 2025-06-19 23:59 | disposition home or self-care (01) ==
LOC: RAD 11:56
PROVIDERS: PCP Internal Medicine; Visit Provider Nurse Practitioner Family
DX: M19.012 Primary osteoarthritis, left shoulder (principal)
CPT/HCPCS: 73030

== ENCOUNTER 2025-07-27 09:40 | Outpatient (CLI) | payer MEDICARE, SELFPAY ==
--- NOTE | 2025-07-27 09:48 | MM_ITS ---
PROCEDURE INFORMATION: Exam: MG Bilateral Screening 3D Mammography Exam date and time: 07/27/2025 10:05 AM Age: 79 years old Clinical indication: Screening examination; Personal history of bilateral breast cancer status post lumpectomy and radiation therapy. TECHNIQUE: Imaging protocol: Bilateral Screening tomosynthesis and 2D mammography including computer-aided detection (CAD) when performed. COMPARISON: 1. MG MM DIG SCREENING MAMM BI W/CAD 07/25/2024 9:45 AM 2. MG MM SURGICAL SPECIMEN RT 09/23/2023 12:44 PM FINDINGS: MAMMOGRAPHY: Breast composition: There are scattered areas of fibroglandular density. Mass: No suspicious masses. Architectural distortion: Postsurgical changes redemonstrated in both breasts. Calcifications: No suspicious calcifications. Asymmetric density: None. Skin thickening: None. Axillary adenopathy: None. IMPRESSION: No mammographic evidence of malignancy. Annual screening is recommended unless otherwise clinically indicated. ASSESSMENT: BI-RADS Category 2: Benign.
== END 2025-07-27 23:59 | disposition home or self-care (01) ==
LOC: RAD 09:41
PROVIDERS: PCP Internal Medicine; Visit Provider Surgery
DX: Z12.31 Encounter for screening mammogram for malignant neoplasm of breast (principal); R92.323 Mammographic fibroglandular density, bilateral breasts; Z85.3 Personal history of malignant neoplasm of breast; Z92.3 Personal history of irradiation; Z90.13 Acquired absence of bilateral breasts and nipples
CPT/HCPCS: 77063; 77067

== ENCOUNTER 2025-08-03 12:03 | Outpatient (CLI) | payer MEDICARE, SELFPAY ==
[2025-08-03 14:23] LABS: Albumin Level 4.2 g/dl (3.5-5.0); Chloride 102 mmol/L (98-107); Potassium 3.8 mmoL/L (3.5-5.1); Sodium 139 mmol/L (136-145)
[2025-08-03 14:26] LABS: Alanine Aminotransferase 18 U/L (12-78); Albumin/Globulin Ratio 1.3 (1.1-1.8); Alkaline Phosphatase 58 U/L (38-126); Anion Gap 15.8 mEq/L (5-15); Aspartate Amino Transferase 37 U/L (14-36); Bilirubin,Total 0.9 mg/dl (0.2-1.3); Blood Urea Nitrogen 19 mg/dl (7-17); Carbon Dioxide 25 mmol/L (22.0-30.0); Cholesterol 150 mg/dl (140-200); Creatinine,Serum 0.80 mg/dl (0.52-1.04); Estimated Glomerular Filt Rate 69 ml/min (>60); GFR (African American) 83 ML/MIN (>60); Globulin 3.3 g/dL (1.3-3.2); Total Protein,Serum 7.5 g/dl (6.3-8.2); Triglycerides 123 mg/dl (30-150)
[2025-08-03 14:27] LABS: Calcium 10.2 mg/dl (8.4-10.2); Glucose 99 mg/dl (74-100); HDL Cholesterol 44 mg/dl (40-60)
[2025-08-03 14:44] LABS: Free T4 (Free Thyroxine) 2.14 ng/dl (0.78-2.19)
[2025-08-03 14:45] LABS: 25-OH Vitamin D, Total 33.7 ng/mL (30-100)
[2025-08-03 14:58] LABS: Thyroid Stimulating Hormone 0.18 uIU/mL (0.465-4.68)
[2025-08-03 17:39] LABS: Hematocrit 36.5 % (37.0-47.0); Hemoglobin 12.2 g/dL (12.2-16.2); Immature Granulocytes % 0.3 %; Mean Corpuscular HGB Conc 33.4 g/dL (31.8-35.4); Mean Corpuscular Hemoglobin 30.0 pg (27.0-31.2); Mean Corpuscular Volume 89.7 fl (81-99); Nucleated Red Blood Cells % 0 %; Platelet Count 249 K/mm3 (142-424); Red Blood Count 4.07 M/mm3 (4.20-5.40); Red Cell Distribution Width-SD 43.6 fL; White Blood Count 5.8 K/mm3 (4.8-10.8)
== END 2025-08-03 23:59 ==
LOC: LAB.DROPOF 08-07 09:25
PROVIDERS: PCP Internal Medicine; Visit Provider Internal Medicine
DX: Z00.00 Encounter for general adult medical examination without abnormal findings (principal); E03.9 Hypothyroidism, unspecified; E78.5 Hyperlipidemia, unspecified; M85.80 Other specified disorders of bone density and structure, unspecified site; Z13.29 Encounter for screening for other suspected endocrine disorder; Z79.899 Other long term (current) drug therapy; Z13.21 Encounter for screening for nutritional disorder; Z13.220 Encounter for screening for lipoid disorders
CPT/HCPCS: 80053; 80061; 82306; 84439; 84443; 85025